=== PATIENT | male | born 1960 | race Caucasian/White ===

== ENCOUNTER 2023-04-09 07:13 | Outpatient (CLI) | payer OTHER, SELFPAY | END 2023-04-09 07:14 | disposition home or self-care (01) | LOC: AMB 04-26 12:05 | PROVIDERS: PCP Surgery; Visit Provider Family Medicine | DX: S09.90XA Unspecified injury of head, initial encounter (principal); S59.901A Unspecified injury of right elbow, initial encounter; V09.9XXA Pedestrian injured in unspecified transport accident, initial encounter; Y92.414 Local residential or business street as the place of occurrence of the external cause | CPT/HCPCS: A0998 ==

== ENCOUNTER 2023-04-09 07:50 | Emergency (ER) | payer OTHER, SELFPAY ==
[2023-04-09] VITALS (13 sets, daily range): BP systolic 147–179; BP diastolic 70–100; PULSE 69–80; RESP 14–18; TEMP 36.5; O2SAT 94–97
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
--- NOTE | 2023-04-09 08:38 | ED.NURSE ---
has had x rays. Pricilla at bs. is alert and oriented. gcs 15. right elbow abrasion cleansed with shur clens, bacitracin and band aid applied. ice to right tay-orbital area and right natarajan. has large swelling and ecchymosis around right eye.
[2023-04-09] MEDS: IBUPROFEN 400 MG TABLET 800 MG PO (09:00)
--- NOTE | 2023-04-09 09:08 | ED.NURSE ---
was given crackers with ibuprofen.
== END 2023-04-09 10:12 | disposition home or self-care (01) ==
PROVIDERS: Emergency Provider Family Medicine; PCP Surgery
DX: S09.90XA Unspecified injury of head, initial encounter (principal); S50.01XA Contusion of right elbow, initial encounter; V49.9XXA Car occupant (driver) (passenger) injured in unspecified traffic accident, initial encounter
CPT/HCPCS: 70450; 76604; 76705; 93308; 99284; 99291; A9270